=== PATIENT | male | born 1985 | race Caucasian/White ===

== ENCOUNTER 2017-12-18 19:06 | Emergency (ER) | payer BC ==
[2017-12-18 20:00] VITALS: BP 134/88
--- NOTE | 2017-12-18 21:14 | UC ---
UC Dental HPI - HPI Summary HPI Summary: Dental pain lower right jaw-pain and swelling will be seeing dentist on Wednesday - History of Current Complaint Chief Complaint: UCDentalProblem Stated Complaint: TOOTH ACHE Time Seen by Provider: 12/18/17 21:30 Hx Obtained From: Patient Onset/Duration: Gradual Onset, Lasting Days, Still Present Severity: Severe Pain Intensity: 8 Pain Scale Used: 0-10 Numeric Alleviating Factor(s): Nothing Related History: Previous Dental Care on Same Tooth, Swelling - Allergies/Home Medications Allergies/Adverse Reactions: Allergies Allergy/AdvReac Type Severity Reaction Status Date / Time No Known Allergies Allergy Verified 12/18/17 19:59 Home Medications: Home Medications Ibuprofen 600 mg PO Q6HR PRN 12/18/17 [History Confirmed 12/18/17] Venlafaxine TAB (NF) [Effexor TAB (NF)] 50 mg PO BID 12/18/17 [History Confirmed 12/18/17] PMH/Surg Hx/FS Hx/Imm Hx Previously Healthy: No Psychological History: Depression - Surgical History Surgical History: None - Family History Known Family History: Positive: None - Social History Occupation: Employed Full-time Lives: With Family Alcohol Use: None Substance Use Type: None Smoking Status (MU): Never Smoked Tobacco Review of Systems Constitutional: Negative Skin: Negative Eyes: Negative ENT: Dental Pain Respiratory: Negative Cardiovascular: Negative Gastrointestinal: Negative Genitourinary: Negative Motor: Negative Neurovascular: Negative Musculoskeletal: Negative Neurological: Negative Psychological: Negative Is Patient Immunocompromised?: No All Other Systems Reviewed And Are Negative: Yes Physical Exam Triage Information Reviewed: Yes Appearance: Well-Appearing, Well-Nourished, Pain Distress Vital Signs: Initial Vital Signs Temp 98.5 F 12/18/17 19:55 Pulse 77 12/18/17 19:55 Resp 16 12/18/17 19:55 BP 134/88 12/18/17 19:55 Pulse Ox 99 12/18/17 19:55 Vital Signs Reviewed: Yes Eye Exam: Normal Eyes: Positive: Conjunctiva Clear ENT Exam: Normal ENT: Positive: Normal ENT inspection, Hearing grossly normal, Pharynx normal, TMs normal, Dental tenderness. Negative: Nasal congestion, Tonsillar swelling, Tonsillar exudate, Trismus, Muffled voice, Hoarse voice, Sinus tenderness, Uvula midline Dental Exam: Other Dental: Positive: Abscess @ Neck exam: Normal Neck: Positive: Supple, Nontender, No Lymphadenopathy Respiratory Exam: Normal Respiratory: Positive: Chest non-tender, Lungs clear, Normal breath sounds, No respiratory distress, No accessory muscle use Cardiovascular Exam: Normal Cardiovascular: Positive: RRR, No Murmur, Pulses Normal, Brisk Capillary Refill Musculoskeletal Exam: Normal Musculoskeletal: Positive: Strength Intact, ROM Intact, No Edema Neurological Exam: Normal Neurological: Positive: Alert, Muscle Tone Normal Psychological Exam: Normal Dental Complaint Course/Dx - Course Course Of Treatment: amoxicillin, pain med, follow with dentist on Wednesday as planned - Differential Dx/Diagnosis Provider Diagnoses: dental abscess right lower jaw Discharge - Discharge Plan Condition: Stable Disposition: HOME Prescriptions: Amoxicillin PO (*) [Amoxicillin 500 MG CAP*] 500 mg PO TID #29 cap Hydrocodone/Acetaminophen [Hydrocodone/Acetaminophen 5-325 mg] 1 tab PO Q4HR PRN #12 tab MDD 6 PRN Reason: Pain - Moderate To Severe Ibuprofen TAB* [Motrin TAB* 600 MG] 600 mg PO Q6H PRN #30 tab PRN Reason: Pain - Mild To Moderate Patient Education Materials: Dental Abscess (ED) Forms: *Work Release Referrals: Lincoln Salazar DO [Primary Care Provider] - Additional Instructions: Follow with the dentist on Wednesday as planned--
[2017-12-18] MEDS ORDERED: Amoxicillin PO (*) 500 MG CAP PO ONE (21:19)
[2017-12-18] MEDS ORDERED: HYDROcodone/ACETAMIN 5-325 MG* 1 TAB PO ONE (21:19)
== END 2017-12-18 21:40 | disposition home or self-care (01) ==
LOC: UCEAST 19:06
DX: K04.7 Periapical abscess without sinus (principal); F32.9 Major depressive disorder, single episode, unspecified
CPT/HCPCS: 99212; A9270-GY; G0463

== ENCOUNTER 2018-02-13 10:43 | Emergency (ER) | payer BC ==
[2018-02-13 11:36] VITALS: BP 117/86
--- NOTE | 2018-02-13 12:47 | UC ---
Complaint Male HPI - HPI Summary HPI Summary: accompanied by , states he has been taking augmentin for the past 6 days due to a dental extraction/infection but started having diarrhea and vomiting and this morning noticed BRBPR with the BM. Denies fever but c/o chills. 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 Onset/Duration: Sudden Onset, Lasting Days Timing: Constant Severity Initially: Moderate Severity Currently: Severe Pain Intensity: 8 Pain Scale Used: 0-10 Numeric Location: Other - lower abdomen Character: Colicy Aggravating Factor(s): Straining Associated Signs And Symptoms: Positive: Blood in Stool, Nausea, Vomiting(# Of Episodes =) - Risk Factors Testicular Torsion: Negative - Allergies/Home Medications Allergies/Adverse Reactions: Allergies Allergy/AdvReac Type Severity Reaction Status Date / Time No Known Allergies Allergy Verified 02/13/18 10:51 Home Medications: Home Medications Amoxicillin/Clavulanate TAB* [Augmentin TAB 500 mg*] 500 mg PO TID 02/13/18 [ History Confirmed 02/13/18] PMH/Surg Hx/FS Hx/Imm Hx Previously Healthy: Yes - Surgical History Surgical History: Yes Surgery Procedure, Year, and Place: dental surgery - Family History Known Family History: Positive: None - Social History Alcohol Use: None Substance Use Type: None Smoking Status (MU): Never Smoked Tobacco Review of Systems Constitutional: Negative Gastrointestinal: Vomiting, Diarrhea, Nausea All Other Systems Reviewed And Are Negative: Yes Physical Exam Triage Information Reviewed: Yes Appearance: Ill-Appearing, Pain Distress, Obese Vital Signs: Initial Vital Signs Temp 98.6 F 02/13/18 10:51 Pulse 124 02/13/18 10:51 Resp 18 02/13/18 10:51 BP 121/76 02/13/18 10:51 Pulse Ox 98 02/13/18 10:51 Vital Signs Reviewed: Yes Eyes: Positive: Conjunctiva Clear ENT: Positive: Hearing grossly normal, Pharyngeal erythema Neck: Positive: Supple, Nontender, No Lymphadenopathy Respiratory: Positive: Chest non-tender, Lungs clear, Normal breath sounds, No respiratory distress Cardiovascular: Positive: RRR, No Murmur, Pulses Normal, Brisk Capillary Refill Abdomen Description: Positive: No Organomegaly, Distended, Guarding Bowel Sounds: Positive: Present Complaint Male Course/Dx - Course Course Of Treatment: discussed with patient and recommendation to transfer to ER due to persistent vomiting and diarrhea with high risk of severe dehydration and presence of bloody stools after antibiotic treatment. Patient refuses to be transfered via ambulance, and [place] be [place] [facility] . Risks discussed with patient and instructed to go to ER STAT - Differential Dx/Diagnosis Provider Diagnoses: Hematochezia. Acute vomiting and diarrhea. History of antibiotic therapy Discharge - Sign-Out/Discharge Documenting (check all that apply): Discharge - Discharge Plan Condition: Guarded Disposition: HOME Patient Education Materials: Acute Nausea and Vomiting (ED), Acute Diarrhea (ED ), Dehydration (ED) Referrals: Lincoln Salazar DO [Primary Care Provider] - Additional Instructions: discussed with patient and recommendation to transfer to ER due to persistent vomiting and diarrhea with high risk of severe dehydration and presence of bloody stools after antibiotic treatment. Patient refuses to be transfered via ambulance, and wants to be driven [place] [facility] . Risks discussed with patient and instructed to go to ER STAT - Billing Disposition and Condition Condition: GUARDED Disposition: HOME
== END 2018-02-13 11:40 | disposition home or self-care (01) ==
LOC: UCEAST 10:43
DX: K92.1 Melena (principal); R19.7 Diarrhea, unspecified; R11.10 Vomiting, unspecified
CPT/HCPCS: 99202; G0463

== ENCOUNTER 2018-03-09 10:51 | Emergency (ER) | payer BC ==
[2018-03-09] MEDS ORDERED: Tetan/Diph/Pertus SYR(Tdap)* 0.5 ML SYR(BOOSTRIX) use SYR IM ONE (11:16)
[2018-03-09 12:16] VITALS: BP 115/82
--- NOTE | 2018-03-09 12:31 | RAD ---
INDICATION: Right foot injury. TECHNIQUE: 2 views of the right foot were obtained. FINDINGS: The bones are in normal alignment. No fracture is seen. Spaces appear maintained. IMPRESSION: NO EVIDENCE FOR FRACTURE, IF THE PATIENT'S SYMPTOMS PERSIST RECOMMEND FOLLOW-UP IMAGING.
--- NOTE | 2018-03-09 13:38 | ED ---
Seb Reinoso Angela, scribed for Manish Chambers MD on 03/09/18 at 1113 . Lower Extremity - HPI Summary HPI Summary: This pt is a 32 y/o male presenting [place] [facility] c/o right foot pain s/p injury to his foot today at 09:05. Pt reports he was using a jackhammer while working at home this morning when he injured his right foot. Pt describes the jackhammer as pointy. He states he had steel toe boots on. Pt is able to bear weight on his right foot. He does not know when was his last tetanus shot. PMHx includes asthma, C. diff. Pt reports he had C. diff from taking Augmentin for a tooth extraction. - History of Current Complaint Chief Complaint: EDExtremityLower Stated Complaint: RT FOOT INJURY Time Seen by Provider: 03/09/18 11:10 Hx Obtained From: Patient Mechanism Of Injury: Penetrating Trauma Onset of Pain: Immediate Onset/Duration: Hours Severity Currently: Mild Pain Intensity: 3 Pain Scale Used: 0-10 Numeric Timing: Lasting Hours Location: Is Discrete @ - right foot Associated Signs And Symptoms: Positive: Negative Aggravating Factor(s): Nothing Alleviating Factor(s): Nothing Able to Bear Weight: Yes - Allergies/Home Medications Allergies/Adverse Reactions: Allergies Allergy/AdvReac Type Severity Reaction Status Date / Time No Known Allergies Allergy Verified 02/13/18 10:51 Home Medications: Home Medications Budesonide/Formote 160/4.5(NF) [Symbicort 160/4.5 (NF)] 1 puff INH DAILY [History Confirmed 03/09/18] PMH/Surg Hx/FS Hx/Imm Hx Respiratory History: Reports: Hx Asthma, Hx Pneumonia - was in ICU for 9 days in 2010 GI History: Reports: Hx Irritable Bowel Sensory History: Reports: Hx Contacts or Glasses Denies: Hx Hearing Aid, Other Sensory Impairments Opthamlomology History: Reports: Hx Contacts or Glasses Denies: Other Sensory Impairments Neurological History: Reports: Hx Dementia, Hx Headaches, Hx Migraine Denies: Other Neuro Impairments/Disorders Psychiatric History: Reports: Hx Anxiety, Hx Depression - Surgical History Surgery Procedure, Year, and Place: dental surgery 02-07-18 Hx Anesthesia Reactions: No Infectious Disease History: No Infectious Disease History: Reports: Hx Clostridium Difficile Denies: Traveled Outside the [place] in Last 30 Days - Family History Known Family History: Positive: Cardiac Disease - father and mother's side , Other - CVA father's side and cancer mother's side Negative: Diabetes, Renal Disease, Respiratory Disease, Seizure Disorder - Social History Alcohol Use: None Hx Substance Use: No Substance Use Type: Reports: None Hx Tobacco Use: No Smoking Status (MU): Never Smoked Tobacco Review of Systems Negative: Fever, Chills Eyes: Negative ENT: Negative Cardiovascular: Negative Musculoskeletal: Other - right foot pain Neurological: Negative All Other Systems Reviewed And Are Negative: Yes Physical Exam - Summary Physical Exam Summary: Appearance: Well appearing, no pain distress Skin: warm, dry, reflects adequate perfusion Head/face: normal Eyes: EOMI, QING ENT: normal Neck: supple, non-tender Respiratory: CTA, breath sounds present Cardiovascular: RRR, pulses symmetrical Abdomen: non-tender, soft Bowel: present Musculoskeletal: strength/ROM intact. L-shaped laceration on the dorsal base of the second and third right toes. No active bleeding. No wounds on the plantar aspect of the right foot. Neuro: normal, sensory motor intact, A&Ox3 Triage Information Reviewed: Yes Vital Signs On Initial Exam: Initial Vitals Temp Pulse Resp BP Pulse Ox 98.7 F 87 16 124/77 98 03/09/18 10:54 03/09/18 10:54 03/09/18 10:54 03/09/18 10:54 03/09/18 10:54 Vital Signs Reviewed: Yes Procedures - Laceration/Wound Repair 1 Location: lower extremity - right foot Description: Irregular - L-shaped Anesthesia: 1.0%, Lido - 2.5 CC Laceration/Wound Explored: clean Suture Type: Prolene - 4-O Number of Sutures: 3 - washed foot with soap and water. Irrigated foot with saline with a syringe. 3 sutures, 4-O prolene were placed. Bacitracin ointment was placed. Sterile dressing was applied. Sterile Dressing Applied?: Yes Diagnostics - Vital Signs Vital Signs Temp Pulse Resp BP Pulse Ox 03/09/18 10:54 98.7 F 87 16 124/77 98 - Laboratory Lab Statement: Any lab studies that have been ordered have been reviewed, and results considered in the medical decision making process. - Radiology Right foot XR Xray Interpretation: No Acute Changes - IMPRESSION: No evidence for fracture, if the patient's symptoms persist recommend follow-up imaging. Dr. Chambers has reviewed this radiology report. Radiology Interpretation Completed By: ED Physician - No fractures seen, Radiologist Re-Evaluation - Re-Evaluation First Eval Re-Evaluation Time: 11:45 Comment: Laceration repair performed. Lower Extremity Course/Dx - Course Course Of Treatment: Patient with blunt force traumatic injury to his right foot. No fractures on x-ray. No significant crush injury seen on examination of the wound. Laceration was cleaned extensively and closed. Patient would like to remain off antibiotics due to recent C. difficile infection. He is instructed to return immediately should he experience any redness, drainage or discharge. Assessment/Plan: Pt declines antibiotics due to history of C. diff from Augmentin. - Diagnoses Provider Diagnoses: Foot laceration Discharge - Sign-Out/Discharge Documenting (check all that apply): Discharge/Admit/Transfer - discharge to home - Discharge Plan Condition: Improved Disposition: HOME Patient Education Materials: Laceration (ED) Referrals: Lincoln Salazar DO [Primary Care Provider] - Additional Instructions: Keep clean and dry. Wash with soap and water twice daily. Dress with bacitracin ointment. Return with increased pain, redness around the wound, drainage, worse or other concerns. Sutures will be removed in 10-14 days. They can be removed by urgent care, the ER or your family physician. - Billing Disposition and Condition Condition: IMPROVED Disposition: HOME The documentation as recorded by the Seb mccain Angela accurately reflects the service I personally performed and the decisions made by me, Manish Chambers MD.
== END 2018-03-09 12:14 | disposition home or self-care (01) ==
LOC: ED 10:51
DX: S91.311A Laceration without foreign body, right foot, initial encounter (principal); W31.89XA Contact with other specified machinery, initial encounter; Y93.89 Activity, other specified; Y92.009 Unspecified place in unspecified non-institutional (private) residence as the place of occurrence of the external cause; Z23 Encounter for immunization; J45.909 Unspecified asthma, uncomplicated; F03.90 Unspecified dementia, unspecified severity, without behavioral disturbance, psychotic disturbance, mood disturbance, and anxiety; F41.9 Anxiety disorder, unspecified; F32.9 Major depressive disorder, single episode, unspecified
CPT/HCPCS: 12001; 90471; 90715; 99282